=== PATIENT | female | born 1965 | race Caucasian/White ===

== ENCOUNTER → 2016-12-22 | Outpatient (CLI) | payer MEDICARE, MEDICAID ==
[~2016-12-22] MED LIST: CYMBALTA30 MG PO; ELAVIL25 MG PO; K-DUR 1010 MEQ PO; LASIX20 MG PO; LYRICA75 MG PO; TOPROL XL25 MG PO; TRAMADOL HCL50 MG PO; VOLTAREN50 MG PO; XANAX1 MG PO
== END ==
LOC: MAMMO 12-17 12:00
DX: Z12.31 Encounter for screening mammogram for malignant neoplasm of breast (principal)

== ENCOUNTER → 2017-01-11 | Outpatient (CLI) | payer MEDICARE, MEDICAID ==
--- NOTE | ~2017-01-11 | PF ---
[place], [place] PULMONARY FUNCTION TEST NAME: [id number] UN[facility] #: [id number] ROOM: DOCTOR: BALA ALANIZ MD,ROBIN BIRTHDATE: [birth year] DOS: 01/12/2017 ORDERED BY: Nurse practitioner, Anahi Delong. HISTORY: The patient recorded as a 51-year-old female, height of 65 inches, weight of 154 pounds, BMI 25.6. The patient reported symptoms of shortness of breath with exertion, nonproductive cough, frequent wheezing and 1 pack of cigarettes per day for 10 years, was noted by the patient actively. SPIROMETRY: The FVC was recorded as 2.19 liters as 60% predicted value, which was moderately decreased by 15%, partial improvement occurred post-bronchodilator test. FEV1 recorded at 48%, severely decreased with partial improvement occurred at 70% postbronchodilator test. Ratio of FEV1/FVC was recorded at 63% post-postbronchodilator. Flow volume was suggestive of obstructive airway pattern with possibly restrictive lung disease as well. The patient's lung diffusion recorded 30%, severely decreased without correction of carbon monoxide or hemoglobin values. The patient is unable to perform the lung functions because of difficulty understanding and performing the test. FINAL IMPRESSION: The test was suggestive of evidence of severe chronic obstructive pulmonary disease. Clinical correlation would be advised. ROBIN MCKENNA MD CM:PFREPORT:PULMONARY FUNCTION TEST [id number] ROBIN ALANIZ MD
== END ==
LOC: CP 03:00
DX: R05 Cough (principal); R06.2 Wheezing; Z72.0 Tobacco use

== ENCOUNTER 2017-04-26 11:36 | Inpatient (IN) | payer MEDICARE, MEDICAID ==
[~2017-04-26] VITALS: Ht 167.6 cm; Wt 69.6 kg
--- NOTE | ~2017-04-26 | ST ---
[place], [place] EXERCISE STRESS TEST REPORT NAME: SEBLE HO UNIT #: [id number] ROOM: [facility] DOCTOR: SOLA PEREZ MERGED WITH [facility] BIRTHDATE: [birth year] DOS: 04/27/2017 LEXISCAN WITH CARDIOLITE The patient received Lexiscan 0.4 mg over 10 seconds. Heart rate is 109. No ischemic changes on the EKG. No complications noted. Isotope was injected. Myocardial perfusion scan to follow. TALON SELBY MD CM:STRESS:EXERCISE STRESS TEST REPORT [id number] TALON SELBY MD MERGED WITH [facility]
--- NOTE | ~2017-04-26 | CON ---
[place], [place] REPORT OF CONSULTATION NAME: SEBLE HO UNIT #: [id number] ROOM: 525 DOCTOR: SOLA PEREZ [place] HAM BIRTHDATE: [birth year] DOS: 04/26/2017 CARDIOLOGY CONSULTATION HISTORY OF PRESENT ILLNESS: The patient is a 52-year-old female who came in to the Emergency Room with chest discomfort. The patient smokes a pack a day, history of chronic obstructive airway disease and did not have any stress test, ray, echo done, heart catheterization done recently and I have seen the patient as an outpatient recently. It seems there is no definite indication for any further testing because of the appropriate care criteria. We will manage conservatively with the medications but now since symptomatic, workup is in progress. Came to the Emergency Room, initial electrolytes, chest x-ray and troponin unremarkable. No acute changes on the EKG. PAST MEDICAL HISTORY: Chronic obstructive airway disease, history of chronic smoking, history of hypertension essential and anxiety. The patient has a history of colonoscopy in the past. No syncope or presyncope. SOCIAL HISTORY: No alcohol or drug use. FAMILY HISTORY: Her mother apparently had obstructive airway disease. No other significant family history noted. ALLERGIES: No known allergies. MEDICATIONS: The patient has been on Xanax, Symbicort, Cymbalta and Lyrica. PHYSICAL EXAMINATION: VITAL SIGNS: Stable. Blood pressure 113/92, pulse 77, afebrile. NECK: Supple. No carotid bruits were heard. LUNGS: No rales. Diminished breath sounds at bases. HEART: S1, S2. No gallops. ABDOMEN: Soft. No peripheral noted. NEUROLOGICAL: No focal neurological deficit. RECTAL, GENITAL, AND BREASTS: Deferred unrelated. DIAGNOSIS: Chest pain, evaluating for ischemic heart disease. Workup is in progress. No evidence of acute coronary syndrome. PLAN: Lexiscan with Cardiolite to evaluate for ischemic heart disease early in the morning. If it is abnormal, consider coronary artery possible revascularization. I explained to the patient. If it is unremarkable, we will manage conservatively with the medical therapy. Thank you very much for asking me to see the patient. [place], [place] REPORT OF CONSULTATION NAME: SEBLE HO UNIT #: [id number] ROOM: 525 DOCTOR: TALON SELBY MD, FACC BIRTHDATE: [birth year] TALON SELBY MD CM:CONSTR:REPORT OF CONSULTATION 1647 04/26/17 1750 interface
[~2017-04-26 11:36] MED LIST changes: +LYRICA75 M1 PO; -LYRICA75 MG PO
[2017-04-26 11:52] LABS: BASO % 0.4 % (0.0-1.0); EOS # 0.1 10*3/uL (0.0-0.4); EOS % 1.4 % (1.0-4.0); HEMATOCRIT 44.7 % (37.0-47.0); HEMOGLOBIN 14.7 g/dl (12.0-16.0); LYMPH # 3.1 10*3/uL (1.3-4.4); LYMPH % 37.5 % (27.0-41.0); MEAN CELL VOLUME 93.1 fl (81.0-99.0); MEAN CORPUSCULAR HGB 30.6 pg (27.0-31.0); MEAN CORPUSCULAR HGB CONC 32.9 g/dl (33.0-37.0); MEAN PLATELET VOLUME 11.7 fl (9.6-12.3); MONO # 0.6 10*3/uL (0.1-1.0); MONO % 7.6 % (3.0-9.0); NEUT # 4.4 10*3/uL (2.3-7.9); NEUT % 52.9 % (47.0-73.0); PLATELET COUNT AUTOMATED 191 10*3/uL (130-400); RED CELL DISTRI WIDTH 13.4 % (0-14.5); WHITE BLOOD COUNT 8.3 10*3/uL (4.8-10.8)
[2017-04-26 12:01] VITALS: BP 157/93
[2017-04-26 12:01] LABS: PROTHROMBIN TIME 10.6 SECONDS (9.0-12.4)
[2017-04-26 12:08] LABS: ALBUMIN 3.6 gm/dl (3.1-4.5); ALKALINE PHOSPHATASE 132 U/L (45-117); BILIRUBIN, TOTAL 0.3 mg/dl (0.2-1.0); BUN 9 mg/dl (7-24); CARBON DIOXIDE 28 mmol/L (21-32); CHLORIDE 104 mmol/L (98-107); EST GLOM FILT AFRICAN AMERICAN > 60 ml/min; GLUCOSE 93 mg/dL (65-99); POTASSIUM 4.3 mmol/L (3.5-5.1); SGOT/AST 24 IU/L (3-35); SGPT/ALT 26 U/L (12-78); SODIUM 139 mmol/L (136-145); TOTAL PROTEIN 8.5 gm/dL (6.4-8.2)
[2017-04-26 12:09] LABS: TROPONIN I < 0.015 ng/ml (<0.045)
[2017-04-26 13:22] VITALS: BP 176/89
[2017-04-26 14:00] VITALS: BP 113/92
[2017-04-26] MEDS ORDERED: MIRTAZAPINE30 M2 PO (14:17)
[2017-04-26] MEDS ORDERED: SYMBICORT1 AER INH (14:18)
[2017-04-26 16:07] VITALS: BP 162/88
[2017-04-26 20:00] VITALS: BP 156/97
[2017-04-27] VITALS: BP 180/68
[2017-04-27 04:00] VITALS: BP 148/64
[2017-04-27 05:58] LABS: BASO % 0.2 % (0.0-1.0); LYMPH % 20.7 % (27.0-41.0); MEAN CELL VOLUME 94.3 fl (81.0-99.0); MEAN CORPUSCULAR HGB 30.7 pg (27.0-31.0); MEAN CORPUSCULAR HGB CONC 32.6 g/dl (33.0-37.0); MONO % 0.8 % (3.0-9.0); NEUT # 3.8 10*3/uL (2.3-7.9); NEUT % 77.7 % (47.0-73.0); PLATELET COUNT AUTOMATED 182 10*3/uL (130-400); RED BLOOD COUNT 4.88 10*6/uL (4.10-5.10); RED CELL DISTRI WIDTH 13.3 % (0-14.5); WHITE BLOOD COUNT 4.8 10*3/uL (4.8-10.8)
[2017-04-27 06:14] LABS: HEMOGLOBIN A1c 5.3 % (4.8-5.6)
[2017-04-27 06:31] LABS: ALBUMIN 3.2 gm/dl (3.1-4.5); BILIRUBIN, TOTAL 0.3 mg/dl (0.2-1.0); BUN 11 mg/dl (7-24); CARBON DIOXIDE 26 mmol/L (21-32); CHLORIDE 103 mmol/L (98-107); CHOLESTEROL 242 mg/dL (<200); EST GLOM FILT AFRICAN AMERICAN > 60 ml/min; GLUCOSE 154 mg/dL (65-99); PHOSPHOROUS 3.5 mg/dL (2.5-4.9); POTASSIUM 4.2 mmol/L (3.5-5.1); SGOT/AST 19 IU/L (3-35); SGPT/ALT 25 U/L (12-78); SODIUM 138 mmol/L (136-145); TOTAL PROTEIN 8.5 gm/dL (6.4-8.2); TRIGLYCERIDES 134 mg/dl (<150); VLDL CHOLESTEROL 27 mg/dL (6-40)
[2017-04-27 06:34] LABS: PROTHROMBIN TIME 10.4 SECONDS (9.0-12.4)
[2017-04-27 06:37] LABS: ALKALINE PHOSPHATASE 136 U/L (45-117); FREE T4 0.91 ng/dl (0.76-1.46); HDL CHOLESTEROL 29 mg/dl (40-60); LDL CHOLESTEROL 186 mg/dL (9-159)
[2017-04-27 07:33] LABS: FOLIC ACID 11.59 ng/mL (>5.38); VITAMIN D, 25-HYDROXY 35.7 ng/mL (30-100)
[2017-04-27 08:00] VITALS: BP 170/82
[2017-04-27 11:39] VITALS: BP 152/81
[2017-04-27] MEDS ORDERED: ZITHROMAX TRI-500 M1 PO (14:24)
[2017-04-27] MEDS ORDERED: PREDNISONE10 MG PO (14:24)
[2017-04-27] MEDS ORDERED: LOW DOSE ASPIRI81 MG PO (14:31)
== END 2017-04-27 14:57 | disposition home or self-care (01) | DRG 205 ==
LOC: ED 11:36 → EDHOLD 12:48 → 5E 12:48 → EDHOLD 13:01 → 5E 13:27
PROVIDERS: Hospitalist; Student in an Organized Health Care Education/Training Program
PROC: 3E033HZ Introduction of Radioactive Substance into Peripheral Vein, Percutaneous Approach (ICD-10-PCS; principal; 2017-04-27)
PROC: 4A02XM4 Measurement of Cardiac Total Activity, External Approach (ICD-10-PCS; principal; 2017-04-27)
DX: M94.0 Chondrocostal junction syndrome [Tietze] (principal); E43 Unspecified severe protein-calorie malnutrition; J44.1 Chronic obstructive pulmonary disease with (acute) exacerbation; I10 Essential (primary) hypertension; F41.1 Generalized anxiety disorder; Z68.24 Body mass index [BMI] 24.0-24.9, adult; Z72.0 Tobacco use; Z83.6 Family history of other diseases of the respiratory system; Z79.899 Other long term (current) drug therapy

== ENCOUNTER 2018-11-07 16:37 | Inpatient (IN) | payer MEDICARE ==
[~2018-11-07] VITALS: Ht 160 cm; Wt 60.4 kg
--- NOTE | ~2018-11-07 | EKG ---
[place], [place] ELECTROCARDIOGRAM REPORT NAME: SEBLE HO UNIT #: [id number] ROOM: 510 DOCTOR: LOAN DRAFT REPORT BIRTHDATE: [birth year] [facility] Test Date: 2018-11-07 Test Time: 17:08:57 Pat Name: SEBLE HO Department: ER Room: 309 Gender: F Flow Specialist: Gayathri Dean : 1965 Requested By: RANI GUTIÉRREZ Order Number: [id number] Reading MD: Conor Abbott MD Measurements Intervals Cord Rate: 79 P: 81 TX: 203 QRS: 83 QRSD: 71 T: 21 QT: 358 QTc: 411 Interpretive Statements Sinus rhythm Borderline prolonged TX interval Consider left ventricular hypertrophy Electronically Signed On 11-09-2018 17:51:59 PST by Conor Abbott MD CM:EKGRPT:ELECTROCARDIOGRAM REPORT 1708 1751 RANI GUTIÉRREZ EPIPHANY DRAFT REPORT RANI GUTIÉRREZ
--- NOTE | ~2018-11-07 | CON ---
[place], [place] REPORT OF CONSULTATION NAME: SEBLE HO UNIT #: [id number] ROOM: 510 DOCTOR: PERLA PHD JELANI BIRTHDATE: [birth year] DOS: 11/08/2018 HISTORY OF PRESENT ILLNESS: The patient is a 53-year-old female referred by the hospitalist with concerns for confusion and altered mental status. Over the past month, her behavior has been increasingly bizarre and within the past week, the patient has been particularly confused. She has been delusional and has been hallucinating. The patient lives with her boyfriend and her daughter. She is on disability. She denied alcohol use and reported smoking a pack a day. She denied drug use, although her drug screen was positive for THC. PAST MEDICAL HISTORY: Depression, hypertension, generalized anxiety disorder, history of CVA, hyperlipidemia. MEDICATIONS: Remeron, Zestril, Plavix, aspirin, vitamin D, folic acid, Lovenox, Nicoderm, Dulcolax, Zofran, Tylenol, Xanax, and Restoril. PHYSICAL EXAMINATION: GENERAL: The patient was awake, alert and oriented to person and place. She gave the date of 11/07/1997, which is her daughter's date. PSYCHIATRIC: Mood was depressed and affect was at times labile. She endorsed command hallucinations to kill herself and kill her daughter. She denied a desire or intent to hurt herself or others, but has been hearing voices, telling her to do so for at least the past week. She states that she follows up with psych here for counseling and see therapies for her medications. Speech and language appeared within normal limits conversationally. Thought process was circumstantial. Thought content was significant for command hallucinations to harm herself and her daughter. With the patient's permission, I spoke with the patient's daughter, she states that the patient has been having a cognitive decline and has been exhibiting bizarre behaviors for the past several months, she has been withdrawn, drinking very little, eating one sandwich per day, sleeping "all the time." The patient's daughter stated that her mother is not taking her medications correctly, only taking her Xanax and Restoril. She apparently has not filled her prescriptions since June or July. The patient's daughter is concerned given the patient's increasing confusion and command hallucinations. The patient has been hallucinating, today thinking she saw Dr. Santos in the hallway when he was not there. I discussed the possibility of inpatient psychiatric treatment with the patient and she was very agreeable. The patient's daughter does not feel safe with the patient returning home and would also like to see her mother receive inpatient psychiatric treatment. DIAGNOSES: Brief psychotic disorder, rule out major depressive disorder with psychotic features; unspecified anxiety disorder. RECOMMENDATIONS: I discussed the patient with Dr. Santos and Dr. Deepak Almonte. They both agreed to make an exception for this patient to be admitted to the [facility] given that she is 53, not 54 once she is medically stable. [place], [place] REPORT OF CONSULTATION NAME: BRANTZOIESEBLE Cali UNIT #: [id number] ROOM: [facility] DOCTOR: PHD JELANI KENDRICK BIRTHDATE: [birth year] Thank you very much for this consult. Romi Kendrick, PhD CM:CONSTR:REPORT OF CONSULTATION 1750 11/09/18 1733 interface
[~2018-11-07 16:37] MED LIST changes: +LOW DOSE ASPIRI81 MG PO; +MIRTAZAPINE30 M2 PO; +PREDNISONE10 MG PO; +SYMBICORT1 AER INH; +ZITHROMAX TRI-500 M1 PO
[2018-11-07 16:38] VITALS: BP 174/96
[2018-11-07 17:19] LABS: BASO # 0.1 10*3/uL (0.0-0.1); BASO % 0.8 % (0.0-1.0); EOS # 0.1 10*3/uL (0.0-0.4); EOS % 1.9 % (1.0-4.0); HEMATOCRIT 40.3 % (37.0-47.0); HEMOGLOBIN 13.6 g/dl (12.0-16.0); LYMPH % 26.9 % (27.0-41.0); MEAN CELL VOLUME 88.4 fl (81.0-99.0); MEAN CORPUSCULAR HGB 29.8 pg (27.0-31.0); MEAN CORPUSCULAR HGB CONC 33.7 g/dl (33.0-37.0); MEAN PLATELET VOLUME 11.3 fl (9.6-12.3); MONO # 0.6 10*3/uL (0.1-1.0); MONO % 7.9 % (3.0-9.0); NEUT # 4.7 10*3/uL (2.3-7.9); NEUT % 62.2 % (47.0-73.0); PLATELET COUNT AUTOMATED 241 10*3/uL (130-400); RED BLOOD COUNT 4.56 10*6/uL (4.10-5.10); RED CELL DISTRI WIDTH 13.6 % (0-14.5); WHITE BLOOD COUNT 7.5 10*3/uL (4.8-10.8)
[2018-11-07] MEDS ORDERED: LYRICA150 M1 PO (17:24)
[2018-11-07] MEDS ORDERED: HYDR25T PO (17:24)
[2018-11-07] MEDS ORDERED: XANAX1 MG PO (17:25)
[2018-11-07] MEDS ORDERED: LINZESS145 MC1 PO (17:25)
[2018-11-07] MEDS ORDERED: BUMEX2.5 MG/10 PO (17:27)
[2018-11-07] MEDS ORDERED: CARVEDILOL3.125 MG PO (17:28)
[2018-11-07] MEDS ORDERED: ZESTRIL10 MG PO (17:28)
[2018-11-07] MEDS ORDERED: LIPITOR40 MG PO (17:28)
[2018-11-07] MEDS ORDERED: TOPROL XL50 M1 PO (17:29)
[2018-11-07] MEDS ORDERED: REMERON30 M1 PO (17:29)
[2018-11-07 17:30] LABS: ACT PARTIAL THROMBO TIME 26.2 SECONDS (20.8-31.5)
[2018-11-07] MEDS ORDERED: ASPIRIN CHEWABL81 MG PO (17:30)
[2018-11-07 17:37] LABS: ALBUMIN 3.6 gm/dl (3.1-4.5); ALKALINE PHOSPHATASE 124 U/L (45-117); BUN 16 mg/dl (7-24); CHLORIDE 102 mmol/L (98-107); CREATININE 1.21 mg/dL (0.55-1.02); LIPASE 151 U/L (73-393); POTASSIUM 3.7 mmol/L (3.5-5.1); SGOT/AST 17 IU/L (3-35); SGPT/ALT 19 U/L (12-78); SODIUM 137 mmol/L (136-145); TOTAL PROTEIN 8.6 gm/dL (6.4-8.2)
[2018-11-07 17:39] VITALS: BP 132/70
[2018-11-07 17:42] LABS: TROPONIN I < 0.015 ng/ml (<0.045)
[2018-11-07 18:05] VITALS: BP 142/79
[2018-11-07 19:22] VITALS: BP 132/103
[2018-11-07 20:18] LABS: BILIRUBIN NEGATIVE (NEGATIVE); BLOOD NEGATIVE (NEGATIVE); CLARITY SL CLOUDY (CLEAR); COLOR YELLOW (YELLOW); GLUCOSE NEGATIVE (NEGATIVE); KETONE TRACE (NEGATIVE); LEUKO ESTERASE TRACE (NEGATIVE); NITRITE NEGATIVE (NEGATIVE); SPECIFIC GRAVITY 1.025 (1.005-1.030)
[2018-11-07 20:26] LABS: URINE AMPHETAMINES < 1000 (1000ng/ml); URINE BARBITURATES < 200 (200ng/ml); URINE BENZODIAZEPINES < 200 (200ng/ml); URINE CANNABINOIDS (THC) > 50 (50ng/ml); URINE COCAINE < 300 (300ng/ml); URINE METHADONE < 300 (300ng/ml); URINE OPIATES < 300 (300ng/ml)
[2018-11-07 20:30] LABS: URINE PHENCYCLIDINE < 25 (25ng/ml)
[2018-11-07 20:33] LABS: BACTERIA 2+; RBC 0-2 rbc/hpf (0-2)
[2018-11-07 20:34] LABS: MUCOUS TRACE
[2018-11-07] MEDS ORDERED: MACROBID100 M1 PO (20:56)
[2018-11-07 22:40] VITALS: BP 161/88
[2018-11-07 23:35] VITALS: BP 194/83
[2018-11-08] VITALS: BP 150/82; BP 194/83
[2018-11-08 08:00] VITALS: BP 158/82
[2018-11-08] MEDS ORDERED: CLOPIDOGREL75 MG PO (08:35)
[2018-11-08 09:49] LABS: BASO % 0.6 % (0.0-1.0); EOS # 0.2 10*3/uL (0.0-0.4); EOS % 2.1 % (1.0-4.0); HEMOGLOBIN 12.4 g/dl (12.0-16.0); LYMPH # 2.3 10*3/uL (1.3-4.4); LYMPH % 32.4 % (27.0-41.0); MEAN CELL VOLUME 89.8 fl (81.0-99.0); MEAN CORPUSCULAR HGB 30.1 pg (27.0-31.0); MEAN CORPUSCULAR HGB CONC 33.5 g/dl (33.0-37.0); MEAN PLATELET VOLUME 11.1 fl (9.6-12.3); MONO # 0.6 10*3/uL (0.1-1.0); MONO % 7.9 % (3.0-9.0); NEUT % 56.7 % (47.0-73.0); PLATELET COUNT AUTOMATED 184 10*3/uL (130-400); RED BLOOD COUNT 4.12 10*6/uL (4.10-5.10); RED CELL DISTRI WIDTH 13.7 % (0-14.5)
[2018-11-08 10:16] LABS: ALBUMIN 3.1 gm/dl (3.1-4.5); BUN 12 mg/dl (7-24); CHLORIDE 108 mmol/L (98-107); POTASSIUM 3.8 mmol/L (3.5-5.1); SODIUM 139 mmol/L (136-145)
[2018-11-08 10:23] LABS: ALKALINE PHOSPHATASE 107 U/L (45-117); CHOLESTEROL 213 mg/dL (<200); CREATININE 0.68 mg/dL (0.55-1.02); FREE T4 1.26 ng/dl (0.76-1.46); HDL CHOLESTEROL 31 mg/dl (40-60); LDL CHOLESTEROL 158 mg/dL (9-159); PHOSPHOROUS 3.3 mg/dL (2.5-4.9); SGOT/AST 19 IU/L (3-35); SGPT/ALT 17 U/L (12-78); TOTAL PROTEIN 7.6 gm/dL (6.4-8.2); TRIGLYCERIDES 121 mg/dl (<150); VLDL CHOLESTEROL 24 mg/dL (6-40)
[2018-11-08 10:34] LABS: ACT PARTIAL THROMBO TIME 28.8 SECONDS (20.8-31.5)
[2018-11-08 11:14] LABS: VITAMIN D, 25-HYDROXY 22.3 ng/mL (30-100)
[2018-11-08 12:00] VITALS: BP 164/98
[2018-11-08 16:00] VITALS: BP 124/56; BP 160/94; BP 180/121
[2018-11-08] MEDS ORDERED: VITAMIN D32000 UNI1 PO (18:04)
[2018-11-08] MEDS ORDERED: PHARMASSURE FO0.4 MG PO (18:04)
[2018-11-08 20:00] VITALS: BP 180/121
== END 2018-11-08 20:28 | disposition home health service (06) | DRG 682 ==
LOC: ED 16:37 → EDHOLD 22:21 → 5E 22:21
PROVIDERS: Family Medicine; Nurse Practitioner Family; ADMIT Internal Medicine
DX: N17.0 Acute kidney failure with tubular necrosis (principal); G93.41 Metabolic encephalopathy; R45.851 Suicidal ideations; F23 Brief psychotic disorder; J44.0 Chronic obstructive pulmonary disease with (acute) lower respiratory infection; N39.0 Urinary tract infection, site not specified; E83.41 Hypermagnesemia; I10 Essential (primary) hypertension; E86.0 Dehydration; F17.210 Nicotine dependence, cigarettes, uncomplicated; F41.1 Generalized anxiety disorder; E78.5 Hyperlipidemia, unspecified; F12.10 Cannabis abuse, uncomplicated; F32.9 Major depressive disorder, single episode, unspecified; Z71.6 Tobacco abuse counseling; Z86.73 Personal history of transient ischemic attack (TIA), and cerebral infarction without residual deficits; Z82.5 Family history of asthma and other chronic lower respiratory diseases; Z79.82 Long term (current) use of aspirin; Z79.899 Other long term (current) drug therapy; Z79.02 Long term (current) use of antithrombotics/antiplatelets; Z80.9 Family history of malignant neoplasm, unspecified; Z82.49 Family history of ischemic heart disease and other diseases of the circulatory system

== ENCOUNTER 2018-11-08 18:37 | Inpatient (IN) | payer MEDICARE ==
[~2018-11-08] VITALS: Ht 162.5 cm; Wt 52.2 kg
--- NOTE | ~2018-11-08 | DS ---
[place], [place] DISCHARGE SUMMARY [id number] UNIT #: [id number] ROOM: 314 DOCTOR: EDEL MOON MD BIRTHDATE: [birth year] DOS: 11/10/2018 CHIEF COMPLAINT: "I was thinking some really strange thoughts." HISTORY OF PRESENT ILLNESS: This is a 53-year-old white female who presented initially to the Emergency Room at [facility] after she was found in a convenience store attempting to buy something with just her ID. She was very confused and disoriented and was brought into the Emergency Room to rule out further organic factors. The patient was found to have a significant UTI and was subsequently admitted to the medical floor. While on the medical floor, the patient voiced depressive symptoms as well as complaining of experiencing command auditory hallucinations telling her to kill her daughter and the patient's boyfriend. The patient did endorse multiple neurovegetative symptoms as well, reporting poor sleep and appetite and a decrease in her ability to perform her ADLs. Once the UTI was clear, the patient was admitted to the [facility] for further evaluation and treatment. SUMMARY OF HOSPITAL COURSE: The patient was admitted to the unit where her p.r.n. Xanax was discontinued in lieu of Risperdal 1 mg twice daily and Remeron 15 mg at bedtime. The patient tolerated these medications well without any apparent sedation or somnolence. There were no extrapyramidal symptoms or tardive dyskinesia noted. The patient did experience a rapid improvement and that her sleep completely improved, so that she was able to fall asleep and stay asleep soundly through the night, waking up refreshed. Her appetite likewise improved. She was able to engage readily in individual and uribe milieu activities, improving her coping skills as well as voicing positive plans for the future. The patient convincingly denied suicidal thoughts, homicidal thoughts or any self-injurious thoughts and denied the presence of any further command auditory hallucinations. She voiced positive plans for the future and was subsequently discharged home to have followup at the [facility] office with her nurse practitioner, Teresa Pratt. MENTAL STATUS AT DISCHARGE: The patient is alert and oriented. Mood does seem to be strongly trending towards euthymia. Affect is more appropriate. There is no fredrick or hypomania. There are no overt auditory hallucinations present. Memory is fully intact. DIAGNOSIS: Major depression, recurrent with psychotic features. DISPOSITION: The patient returning home. Her prescriptions have been e-scribed to her pharmacy. At the time of discharge, there were no acute medical problems and she was psychiatrically stable. ADDENDUM CHIEF COMPLAINT: "I am really ready to go this time, Dr. Moon." SUMMARY OF THE VISIT: The patient was interviewed in the dining area. She was [place], [place] DISCHARGE SUMMARY NAME: SEBLE HO UNIT #: [id number] ROOM: 314 DOCTOR: EDEL MOON MD BIRTHDATE: [birth year] bright and pleasant upon approach. She looked very good and stated that she is sleeping better, eating better, and feels 100% better. She also verbalizes a strong wish to go home convincingly denying suicidal thoughts, homicidal thoughts or any self-injurious thoughts. The patient did have a family session on Tuesday prior to her proposed discharge. However, family voiced concern that she was rushing out of the hospital too quick. Nursing also had a concern that the patient could possibly be having drug smuggled into her because of some changes in her behavior and did want to run a urine and blood drug screen. Subsequently, the patient had an excellent weekend with good interaction with staff and with family and the drug levels were negative for any illicit substance. The patient now does seem ready for discharge. MENTAL STATUS AT DISCHARGE: The patient is alert and oriented x 3. Mood is euthymic. Affect appropriate. There is no fredrick or hypomania. There is no gross psychosis. Short, intermediate, and long-term memory are intact. FINAL DIAGNOSES UPON DISCHARGE: Major depression, recurrent, with psychotic symptoms. DISPOSITION: As per the previous discharge summary. EDEL MOON MD CM:DISCHARG 0936 EDEL MOON MD 11/13/18 1751 interface
--- NOTE | ~2018-11-08 | WRIGHTHP ---
[place], [place] PATIENT HISTORY AND PHYSICAL EXAM [id number] UN[facility] #: [id number] ROOM: 309 DOCTOR: EDEL MOON MD BIRTHDATE: [birth year] DOS: 11/08/2018 INITIAL PSYCHIATRIC EVALUATION CHIEF COMPLAINT: "I was thinking some really strange thoughts." HISTORY OF PRESENT ILLNESS: This is a 53-year-old white female who presented initially to the Emergency Room at [facility] after she was found in a convenience store attempting to buy something with her ID. She was found to be very confused and disoriented and was brought into the Emergency Room to rule out any organic factors. The patient was found to have a significant UTI and was subsequently admitted to the medical floor. While on the medical floor, the patient did report increased depression with command auditory hallucinations telling her to kill her daughter and her daughter's boyfriend. The patient had also endorsed some neurovegetative symptoms. Most recently, the patient has been seeing a nurse practitioner at the [facility] and has been prescribed Xanax 3 times daily as needed. She was admitted now to the [facility] to rule out further organic factors to attempt to stabilize on medication and to engage in individual and uribe milieu activities. PAST MEDICAL HISTORY: Remarkable for hypertension, major depression, generalized anxiety disorder, history of a CVA, and hyperlipidemia. SOCIAL HISTORY: The patient does not drink alcohol. She is a half a pack a day cigarette smoker for the last 2 years and she does smoke marijuana frequently. STRENGTHS: Ambulatory, good verbal skills, willingness to seek out help. WEAKNESSES: Poor coping skills, significant past psychiatric history. MENTAL STATUS: The patient this morning is alert and oriented x 3. Mood for the most part seems fairly euthymic. She was somewhat anxious and beside herself over what she had experienced but reports that the thoughts are dissipating and that she is feeling better. She did report that she slept better last evening and has a decent appetite. She denies any symptoms suggestive of hypomania or fredrick and currently is denying any type of hallucination or delusion. Memory for the most part is fairly intact. DIAGNOSIS: Major depression, recurrent with psychotic features. PLAN: I did stop her Xanax and start her on Risperdal 1 mg twice daily along with Remeron 15 mg at bedtime to further aid sleep and combat her depressive symptomatology. We will engage her in individual and uribe milieu activity with the ultimate plan to return to the least restrictive environment when psychiatrically stable. [place], [place] PATIENT HISTORY AND PHYSICAL EXAM NAME: SEBLE HO UNIT #: [id number] ROOM: [facility] DOCTOR: EDEL MOON MD BIRTHDATE: [birth year] EDEL MOON MD CM:HISPHYS:PATIENT HISTORY AND PHYSICAL EXAMINATION 3 EDEL MOON MD 11/09/1815 interface
[~2018-11-08 18:37] MED LIST changes: +ASPIRIN CHEWABL81 MG PO; +BUMEX2.5 MG/10 PO; +CARVEDILOL3.125 MG PO; +CLOPIDOGREL75 MG PO; +HYDR25T PO; +LINZESS145 MC1 PO; +LIPITOR40 MG PO; +LYRICA150 M1 PO; +MACROBID100 M1 PO; +PHARMASSURE FO0.4 MG PO; +REMERON30 M1 PO; +TOPROL XL50 M1 PO; +VITAMIN D32000 UNI1 PO; +ZESTRIL10 MG PO
--- NOTE | 2018-11-08 20:45 | NUR ---
GEORGIASEBLE a 53 year old F admitted via wheel chair from 5TH FLOOR as a voluntary admission THAT WAS SIGNED EARLIER TODAY FOR DR HORN. Arrived on unit at 0. ALLERGIES: NKA. Vital signs are: 99.1-76-16 148/75. The client signed the following forms with stated understanding: Authorization For The Release of Medical Information, Clothing List, Consent to Voluntary Admission and Hospitalization, Consent and Release Forms/Receipt of Rights, Acknowledgement of Advance Directive Information, Behavioral Health Consent Form, and Informed Consent of Medications. Admitted under the services of Dr. RED PEREZ,[facility]. A search was conducted and hazardous articles were removed. Client was oriented to the unit. RICHMOND ABRAHAM
--- NOTE | 2018-11-08 20:52 | NUR ---
DR MARQUEZ NOTIFIED OF MEDICAL CONSULT. HE STATED TO PLACE REFERAL UNDER DR SANTIAGO.
[2018-11-08 21:00] VITALS: BP 148/75
--- NOTE | 2018-11-08 22:00 | NUR ---
DR MARQUEZ ON UNIT TO PT FOR MEDICAL CONSULT.
[2018-11-08 22:36] VITALS: BP 148/75
--- NOTE | 2018-11-08 23:28 | NUR ---
SCHOOL PSYCHOLOGIST ASSISTANTADRIENNE NOTIFIED VIA VOICE MAIL OF PTS ADMISSION.
--- NOTE | 2018-11-09 05:55 | NUR ---
PT HAS SLEPT QUIETLY THROUGHOUT THE SHIFT PAST 0030.
[2018-11-09 08:07] VITALS: BP 156/78
--- NOTE | 2018-11-09 08:15 | NUR ---
Treatment Plan meeting with Dr. Santos, RN, AT, SW and Wrist Hemmer. Plan for discharge possible Tuesday. Pt. will return home at discharge.
--- NOTE | 2018-11-09 08:59 | NUR ---
SPOKE WITH RE:PT HOME MEDS NEEDING TO BE CONTINUED, ADVISED THAT FROM PREVIOUS SHIFT MEDS WERE REVIEWED WITH HUNTER SINGH
--- NOTE | 2018-11-09 12:03 | NUR ---
ASSESSMENT AND 1:1 PT ARRIVED FROM THE MEDICAL FLOOR WITH A UTI. PT OPENLY DISCUSSED DURING ASSESSMENT AND 1:1 ISSUES OF DEPRESSION AND ANXIETY. PT RECEPTIVE TO READING MATERIALS FOR COPING WITH STRESSORS AND ANXIETY. PT IS SET TO BE DISCHARGED TOMORROW. PT EXPRESSED NO HOMICIDAL IDEATIONS DURING OUR DISCUSSIONS.
--- NOTE | 2018-11-09 13:54 | NUR ---
DR. SANTIAGO ON UNIT TO ASSESS PATIENT.
--- NOTE | 2018-11-09 14:54 | NUR ---
NO ADVERSE MOOD OR BEHAVIORS NOTED THIS SHIFT. PT ALERT TO PERSON, PLACE AND TIME. PT MED COMPLIANT WITHOUT DIFFICULTY, MED EDUCATION PROVIDED. PT CALM MOOD IS STABLE. PT INTERACTIVE WITH STAFF AND PEERS. NO HALLUCINATIONS OR DELUSIONS NOTED. PT DENIES ANY SUICIDAL/HOMICIDAL THOUGHTS. PT AMBUALTORY THROUGHOUT UNIT, GAIT STEADY. PT CONTINENT OF BOWEL AND BLADDER. PLAN IS TO MONITOR PT BEHAVIORS ON Q15 MIN SAEFTY CHECKS, ENCOURAGE MED COMPLIANCE AND PROVIDE MED EDUCATION, PROVIDE EMOTIONAL SUPPORT AND 1:1 FOR PT TO VOICE FEELINGS.
--- NOTE | 2018-11-09 15:36 | NUR ---
PM GROUP/ART AND MUSIC PT ATTENDED AND PARTICIPATED IN ALL GROUP ACTIVITIES. PT EXPRESSED NO HOMOCIDAL IDEATIONS DURING GROUP. PT WAS TAKEN OUT OF GROUP FOR SW ASSESSMENT AND DID NOT RETURN
[2018-11-09 19:11] VITALS: BP 134/70
--- NOTE | 2018-11-09 21:04 | NUR ---
24 HR chart check completed.
--- NOTE | 2018-11-09 21:23 | NUR ---
PT IS STABLE. MOOD IS EUTHYMIC & PLEASANT. ALERT & ORIENTED X 4. DENIES ANY SUICIDAL OR HOMOCIDAL THOUGHTS. DENIES SENSORY DISTURBANCE & NONE IS EVIDENT. PT IS CO-OPERATIVE. COMPLIANT WITH MEDICATIONS. STATED THAT SHE IS FEELING BETTER. NO PHYSICAL COMPLIANTS VOICED. INDEPENDENT WITH ALL ASPECTS OF CARE.
--- NOTE | 2018-11-10 05:46 | NUR ---
PT HAS SLEPT PAST 2300.
[2018-11-10 06:54] LABS: BUN 11 mg/dl (7-24); CHLORIDE 100 mmol/L (98-107); CREATININE 0.89 mg/dL (0.55-1.02); SODIUM 137 mmol/L (136-145)
--- NOTE | 2018-11-10 07:24 | NUR ---
SPOKE WITH DR. BARKER AT [phone] RE: PT POTASSIUM OF 3.[address] BARKER HE WILL ORDER A SUPPLEMENT.
[2018-11-10 07:29] VITALS: BP 105/68
--- NOTE | 2018-11-10 08:15 | NUR ---
Treatment Plan meeting with Dr. Santos, RN, AT, SW and Autom[employer] Service Station Attendant. Plan for discharge today. Pt. to return home with Follow Up appointments scheduled with [place] with Courtney Pratt 11/27/18 8:45 a.m. Previously scheduled appointment unable to change, Medical Follow Up with Anahi DESOUZA 11/20/18 10:00 a.m. Family to sampler pickup patient after family meeting scheduled today this afternoon.
[2018-11-10] MEDS ORDERED: RISPERIDONE1 MG PO (09:15)
[2018-11-10] MEDS ORDERED: MIRTAZAPINE15 M2 PO (09:15)
--- NOTE | 2018-11-10 09:20 | NUR ---
ADVISED DR. BARKER OF PT DISCHARGE SCHEDULED FOR TODAY. NO FURTHER ORDERS AT THIS TIME.
--- NOTE | 2018-11-10 11:55 | NUR ---
AM GROUP/EXERCISE AND BRAIN GAMES PT ATTENDED AND PARTICIPATED IN ALL GROUP ACTIVITIES. PT EXPRESSED NO HOMCIDAL IDEATIONS DURING GROUP. PT WILL BE DISCHARGED FROM THE UNIT TODAY.
--- NOTE | 2018-11-10 13:15 | NUR ---
PT IN VISITNG ROOM WITH DAUGHTER AND EX-, FAMILY ADVISED THIS NURSE THAT PT WAS INCONTINENT OF BOWEL. PT DIRECTED TO ROOM AND ASSISTED WITH HYGIENE VIA 1 STAFF ASSIST. WHILE PERFORMING HYGIENE, PT GAIT BECOMES UNSTEADY. ORDERS RECEIVED FROM DR. MOON FOR STAT SERUM TOX SCREEN AND URINE DRUG SCREEN. THIS NURSE ADVSIED PT THAT WE NEEDED A URINE SAMPLE, PT WENT INTO THE BATHROOM AND STATED "I MISSED THE HAT." PT COMES OUT OF BATHROOM BEGINS TO WALK DOWN THE MERRITT TOWARD THE OPPOSITE DIRECTION. THIS NURSE ASKED PT WHAT SHE WAS DOING P[T STATED "I DUNNO" PT REDIRECTED BACK INTO QUIET ROOM WITH SOCAIL WORKER.
[2018-11-10] MEDS ORDERED: KLOR-CON M2020 ME1 PO (13:57)
--- NOTE | 2018-11-10 15:00 | NUR ---
Dr. Enamorado visits. Spoke with Patient, Her daughter and Pt. boyfriend. Recommends for Pt. to follow up with a Neurologist. Referral faxed to Dr. Jeri Bal . Provided Pt. with Address and Phone Number to Office for follow up. Ordered Imaging Disc from Radiology.
--- NOTE | 2018-11-10 15:39 | NUR ---
PM GROUP/MUSIC AND MANICURES PT DID NOT ATTEND AFTERNOON GROUP THERAPY. PT WAS IN A FAMILY MEETING WITH SW AND IS SET TO BE DISCHARGED TODAY.
--- NOTE | 2018-11-10 16:15 | NUR ---
SPOKE WITH DR.CHAIO BARROW THAT PT IS NOT BEING DISCHARGED TODAY.
[2018-11-10 17:15] LABS: URINE AMPHETAMINES < 1000 (1000ng/ml); URINE BARBITURATES < 200 (200ng/ml); URINE BENZODIAZEPINES < 200 (200ng/ml); URINE CANNABINOIDS (THC) < 50 (50ng/ml); URINE COCAINE < 300 (300ng/ml); URINE METHADONE < 300 (300ng/ml); URINE OPIATES < 300 (300ng/ml); URINE PHENCYCLIDINE < 25 (25ng/ml)
[2018-11-10 19:53] VITALS: BP 94/66
--- NOTE | 2018-11-10 19:54 | NUR ---
ATTEMPTED TO NOTIFY RESIDENT RE: PT BP ON NO ANSWER WILL TRY AGAIN
--- NOTE | 2018-11-10 20:05 | NUR ---
RETURNED CALL, UPDATED ON PT BP. PER DR. PINA HE WILL TAKE A LOOK AT HER MEDS.
--- NOTE | 2018-11-10 22:01 | NUR ---
Facilitated family session with pt and ex- first and then pt, daughter, current boyfriend, RN. And dr nichols and cyber intel planner for portions. Reviewed communication skills, conflict resolution strategies, reflective listening and feedback, gratitude, grief/loss, and safety planning. Daughter indicated that pt when she was hallucinating she said she was going to slit the daughter's throat. Therefore, family agreed to lock knives as they sit in a knife block as a safety proofing strategy. This narrative writer offered support and encouragement as well as feedback on areas of improvement and noted progress between sessions. Provided pt several therapeutic assignments and provided psychoeducation on CBT triangle. Pt seemed somewhat receptive. Pt continues to deny hallucinations; pt eyes were darting.
--- NOTE | 2018-11-10 22:14 | NUR ---
P: DEPRESSED MOOD, I: ENCOURAGE PT TO SOCIALIZE WITH STAFF AND PEERS, ENCOURAGE PT TO PARTICIPATE IN GROUPS/ACTIVITIES R: PT SOCIALIZING WITH PEERS AND STAFF, PT PARTICIPATED IN AM GROUP P: ENOCURAGE PT TO PARTICIPATE IN GROUPS/ACTIVITIES, ENCOURAGE SOCIALIZATION WITH STAFF AND PEERS, MONITOR PT BEHAVIORS ON Q15 MIN SAEFTY CHECKS. PT ALERT TO PERSON, PLACE AND TIME. PT MED COMPLIANT WITHOUT DIFFICULTY. PT ENCOURAGED TO APPROACH STAFF TO ASK FOR MEDS AT THE APPROPRAITE TIMES, MED EDUCATION PROVIDED. PT DENIES HALLUCIANTIONS OR DELUSIONS, EYE DARTING NOTED. PT DENIES ANY SUICIDAL/HOMICIDAL THOUGHTS. PT AMBULATORY THROUGHOUT UNIT, GAIT STEADY. PT CONTINENT OF BOWEL AND BLADDER, EPISODES OF INCONTINENCE NOTED, CARE PROVIDED NEEDED.
--- NOTE | 2018-11-11 06:26 | NUR ---
PT SLEPT APPROXIAMTELY 4 HOURS THIS SHIFT. Q15 MIUNTE SAFETY CHECKS MAINTAINED.
[2018-11-11 07:33] VITALS: BP 108/67
--- NOTE | 2018-11-11 08:30 | NUR ---
PT RESTING QUIETLY IN BED WITH EYES CLOSED, RESPS EASY AND EVEN ON ROOM AIR, PT REPOSITIONING SELF. NAYAN SMITH MOTOR GRADER ROUGH GRADE ON UNIT TO SEE PT FOR , FULL UPDATE GIVEN, MADE AWARE OF BIZARRE BEHAVIORS REPORTED YESTERDAY AFTERNOON.
--- NOTE | 2018-11-11 11:15 | NUR ---
AND ON UNIT TO SEE PT AT THIS TIME, MADE AWARE OF INCREASED DROWSNIESS. MADE AWARE AM MEDS NOT GIVEN D/T DROWSINESS.
--- NOTE | 2018-11-11 11:57 | NUR ---
AM GROUP/EXERCISE/MUSIC/GAME PT DID NOT ATTEND OR PARTICIPATE IN GROUP. PT ENCOURAGED ALTHOUGH STAFF STATED THAT PT IS TIRED AND MAY NOT WAKE FOR GROUP. PT DID NOT WAKE FOR GROUP BUT WILL CONTINUE TO BE ENCOURAGED TO ATTEND AND PARTICIPATE IN FUTURE GROUP SESSIONS.
--- NOTE | 2018-11-11 13:26 | NUR ---
THIS NURSE AND 2ND RN WOKE PT FOR AFTERNOON VISITATION HOURS SHE HAD FAMILY COME TO THE UNIT TO VISIT. PT COVERED SELF WITH BLANKET AND YELLED AT STAFF "LEAVE ME ALONE, GET OUT OF HERE". STAFF AGAIN ADVISED PT SHE HAD FAMILY HERE TO VISIT AND ASKED IF SHE WANTED TO GET UP, PT ROLLED OVER AND STATED "NO". FAMILY UPDATED. CLOTHING PROVIDED TO STAFF BY DAUGHTER PRASAD WHO STATES OK TO REMOVE/CUT STRINGS FROM PANTS.
--- NOTE | 2018-11-11 14:31 | NUR ---
PT CONTINUES TO REST QUIELTY IN BED WITH EYES CLOSED, AROUSES EASILY TO VERBAL STIMULI, OFFERED FOOD/FLUIDS, PT STATES "I'M NOT HUNGRY RIGHT NOW". PT STATES SHE DIDN'T RECALL REFUSING TO GET UP FOR LUNCH OR VISITATION AND STATES "YES, I'LL GET UP FOR DINNER AND VISIT AFTERWRADS. THAT'S A GOOD PLAN. THANK YOU".
--- NOTE | 2018-11-11 15:06 | NUR ---
RECIEVED CALL FROM PT'S SISTER WILVER, PT SITTING ON SIDE OF BED AWAKE AND ALERT AT THIS TIME, GAVE PERMISSION FOR THIS NURSE AND 2ND RN TO SPEAK WITH AND UPDATE PT'S SISTER WILVER. SISTER VOICES CONCERN ABOUT PT AND WISHES TO HAVE HER TRANSFERRED TO ANOTHER HOSPITAL. PT DENIES WANTING A TRANSFER AND STATES "NO, I'M HAPPY RIGHT WHERE I'M AT, I'M FINE". UPDATE PROVIDED, SISTER'S CONCERNS ADDRESSED. ALL QUESTIONS ANSWERED.
--- NOTE | 2018-11-11 15:51 | NUR ---
P- ISOLATIVE TO ROOM, DROWSY THIS AM, AWAKE AND ALERT NOW, READING BOOK IN ROOM. I- ORIENTATION, MOOD AND BEHAVIOR ASSESSED. ORIENTATION, MOOD AND BEHAVIOR ASSESSED. ASSESSED PT FOR SI/HI, INTENT OR PLAN. ASSESSED PT FOR S/S HALLUCINATIONS, PARANOIA AND/OR DELUSIONS. MEDICATION COMPLIANCE ENCOURAGED. ENCOURAGED PT TO ATTEND AND PARTICIPATE IN [facility] GROUPS AND ACTIVITIES. R- PT IS ALERT AND ORIENTED X4. MEMORY APPEARS TO BE INTACT. RESPS EASY AND EVEN ON ROOM AIR. MOOD IS STABLE, AFFECT IS APPROPRIATE. SPEECH IS WNL AND COHERENT, ABLE TO MAKE NEEDS KNOWN WITHOUT DIFFICULTY. PT READILY ENGAGED IN 1:1 CONVERSATION WITH THIS NURSE THIS AFTERNOON, PT CALM AND PLEASANT, STATES SHE IS FEELING "GREAT". PT DENIES HALLUCINATIONS, PT STATES "NO, I HAVEN'T HAD ANY MORE OF THAT SINCE I GOT HERE". PT DENIES SI/HI, INTENT OR PLAN. PT STATES "I'M JUST ANXIOUS TO GET HOME ON TUESDAY". PT READING BOOK IN ROOM AT THIS TIME, STATES SHE WILL COME UP TO DINING ROOM FOR DINNER. HAD SHOWER LAST NIGHT. P- PLAN TO CONTINUE CURRENT TREATMENT, CONTINUE TO MONITOR MOOD AND BEHAVIORS, PROVIDE REORIENTATION, REDIRECTION AND 1:1 NEEDED. CONTINUE TO ENCOURAGE MEDICATION COMPLIANCE WELL GROUP ATTENDANCE AND PARTICIPATION.
--- NOTE | 2018-11-11 18:16 | NUR ---
SHIFT CHART CHECK COMPLETED.
[2018-11-11 20:00] VITALS: BP 112/68
--- NOTE | 2018-11-11 23:17 | NUR ---
24 HR chart check completed.
--- NOTE | 2018-11-12 00:23 | NUR ---
P: DEPRESSED I: ENCOURAGED TO VERBALIZE FEELINGS. ASSESS MOOD AND BEHAVIOR. R: MOOD STABLE. IS PLEASANT AND CALM WHEN INTERACTING WITH STAFF OR PEERS. DENIES SI/HI. EXCITED TO BE GOING HOME ON TUESDAY. P: ENCOURAGE MED COMPLIANCE. CONTINUE CURRENT TREATMENT PLAN. MONITOR MOOD AND BEHAVIOR.
--- NOTE | 2018-11-12 05:57 | NUR ---
PATIENT SLEPT OVER 7 HOURS LAST NIGHT.
[2018-11-12 07:10] VITALS: BP 129/69
--- NOTE | 2018-11-12 09:17 | NUR ---
NAYAN SMITH CONTAINER SHOP WELDER, COVERING FOR ON UNIT TO SEE PT AT THIS TIME, UPDATE GIVEN.
--- NOTE | 2018-11-12 15:59 | NUR ---
PM GROUP PT ATTENDED AND PARTICIPATED IN ALL ACTIVITIES. PT PLEASANT AND ON TASK. PT DID NOT REPORT ANY HOMICIDAL IDEATIONS AT THIS TIME. PT WILL CONTINUE TO ATTEND AND PARTICIPATE IN FUTURE GROUP SESSIONS.
--- NOTE | 2018-11-12 17:23 | NUR ---
received a voicemail from Wil FAIR stating that pt refused to see her daughter for visitation and attempted to return call as requested but no answer so this web content writer left a VM. Met with pt who stated she was just sleeping and this was confirmed by the RN and pt stated she is doing better with her therapy assignments and she is feeling proud of herself. Pt is continuing to work on self advocating for her medication as she is forgetting to ask for them but remembered one time. Pt was offered support and encouragement.
--- NOTE | 2018-11-12 18:28 | NUR ---
PT IS ALERT AND ORIENTED X4. MEMORY APPEARS TO BE INTACT. RESPS EASY AND EVEN ON ROOM AIR. MOOD IS STABLE, AFFECT IS APPROPRIATE, SPEECH IS WNL AND COHERENT, ABLE TO MAKE NEEDS KNOWN WITHOUT DIFFICULTY. PT STATES SHE IS FEELING "GREAT" AND IS "READY TO GO HOME TOMORROW". PT DENIES SI/HI, INTENT OR PLAN. PT DENIES HALLUCINATIONS, NO RESPONSE TO INTERNAL STIMULI NOTED. NO PARANOIA/DELUSIONS NOTED. PT IS MEDICATION COMPLIANT WITHOUT DIFFICULTY. PT IS PLEASANT, CALM AND COOPERATIVE. POSITIVE INTERACTIONS NOTED WITH BOTH PEERS AND STAFF. PT IS AMBULATORY WITH STEADY GAIT, INDEPENDENT WITH ADLS, FEEDS SELF, DISPLAYS GOOD APPETITE WITH ADEQUATE FLUID INTAKE. Q15 MIN SAFETY CHECKS MAINTAINED. REFER TO [id number] FLOWSHEETS FOR SPECIFIC DOCUMENTATION. PLAN TO CONTINUE CURRENT TX, CONTINUE TO MONITOR MOOD AND BEHAVIORS; PROVIDE REORIENTATION, REDIRECTION AND 1:1 NEEDED.
--- NOTE | 2018-11-12 18:51 | NUR ---
SHIFT CHART CHECK COMPLETED.
[2018-11-12 19:15] VITALS: BP 136/68
--- NOTE | 2018-11-12 19:29 | NUR ---
confirmed with daughter that the safety proofing in home was completed as daughter was visiting with pt. Pt also reminded about using her assertive communication skills and medication compliance and pt stated she is doing better and she is aware of how to self advocate tonight. provided praise to pt and she seemed receptive.
--- NOTE | 2018-11-12 21:39 | NUR ---
P--DEPRESSION (RESOLVED) I--1:1, MEDICATED PER ORDERS, EMOTIONAL SUPPORT PROVIDED. REVIEWED COPING SKILLS R--I HAD A GREAT DAY. NO PROBLEMS. I FEEL SO GOOD. YOU GUYS HAVE HELPED ME SO MUCH P--CONTINUE EMOTIONAL SUPPORT. REVIEW COPING SKILLS. MONITOR FOR CHANGES IN BEHAVIOR AND OR MOOD
--- NOTE | 2018-11-13 00:06 | NUR ---
24 HR chart check completed.
--- NOTE | 2018-11-13 06:02 | NUR ---
SLEPT OVER 6.5 HOURS
[2018-11-13 06:26] LABS: BUN 25 mg/dl (7-24); CHLORIDE 97 mmol/L (98-107); POTASSIUM 3.7 mmol/L (3.5-5.1); SODIUM 133 mmol/L (136-145)
[2018-11-13 07:53] VITALS: BP 121/67
--- NOTE | 2018-11-13 08:15 | NUR ---
Treatment Plan meeting with Dr. Santos, RN, AT, SW and [employer] Faculty Member. Plan for discharge today. Pt. to return home. Follow Up appointments have been scheduled. Pt. to follow with [facility] and Anahi Delong. Appointments scheduled.
--- NOTE | 2018-11-13 09:12 | NUR ---
P-DEPRESSED(RESOLVED) I-PROVIDED 1:1 AND EMOTIONAL SUPPORT. REVIEWED COPING SKILLS. R-PATIENT STATED "I FEEL SO MUCH BETTER. I AM SO GRATEFUL FOR ALL YOU GUYS." P-CONTINUE TO MONITOR BEHAVIOR. CONTINUE TO EMCOURAGE MEDICATION COMPLIANCE.
--- NOTE | 2018-11-13 11:05 | NUR ---
Follow up appointment Scheduled for pt. to see Neurologist Outpatient Dr. Jeri Wright at [address] [place] [id number]. Appointment scheduled 12/11/18 11:45 a.m.
--- NOTE | 2018-11-13 11:44 | NUR ---
AM GROUP/EXERCISE/FOCUS PT ATTENDED AND PARTICIPATED DURING GROUP. PT PLEASANT AND ON TASK. PT DID NOT EXPRESS ANY HOMICIDAL IDEATIONS. PT WILL PLAN FOR DISCHARGE FROM UNIT SOMETIME TODAY.
--- NOTE | 2018-11-13 12:20 | NUR ---
Patient discharged to home with family and staff in a wheelchair. Discharge instructions given to patient.
== END 2018-11-13 12:20 | disposition home or self-care (01) | DRG 885 ==
LOC: 3N 18:37
PROVIDERS: Internal Medicine; Registered Nurse; ADMIT Psychiatry & Neurology Psychiatry
DX: F33.3 Major depressive disorder, recurrent, severe with psychotic symptoms (principal); F23 Brief psychotic disorder; R45.851 Suicidal ideations; F17.210 Nicotine dependence, cigarettes, uncomplicated; F12.10 Cannabis abuse, uncomplicated; F41.1 Generalized anxiety disorder; I10 Essential (primary) hypertension; E78.5 Hyperlipidemia, unspecified; Z86.73 Personal history of transient ischemic attack (TIA), and cerebral infarction without residual deficits; Z79.899 Other long term (current) drug therapy; Z79.02 Long term (current) use of antithrombotics/antiplatelets; Z87.440 Personal history of urinary (tract) infections